=== PATIENT | female | born 1930 | race Two or more races ===

== ENCOUNTER 2018-08-17 10:40 | Emergency (ER) | payer MEDICARE, MEDICAID ==
[~2018-08-17] VITALS: Ht 165.1 cm; Wt 78.5 kg
[2018-08-17 10:53] VITALS: BP 135/78
== END 2018-08-17 11:37 | disposition home or self-care (01) ==
LOC: ER 10:41
DX: S30.860A Insect bite (nonvenomous) of lower back and pelvis, initial encounter (principal); W64.XXXA Exposure to other animate mechanical forces, initial encounter; Y93.89 Activity, other specified; Y92.89 Other specified places as the place of occurrence of the external cause; Y99.8 Other external cause status
CPT/HCPCS: 99283; A4606